=== PATIENT | female | born 1995 | race Caucasian/White ===

== ENCOUNTER 2018-03-07 01:28 | Emergency (ER) | payer OTHER, SELFPAY ==
[2018-03-07 01:29] VITALS: BP 176/100; PULSE 78; RESP 16; TEMP 36.6; O2SAT 100; BMI 47.3
--- NOTE | 2018-03-07 01:41 | RAD_ITS ---
STUDY: X-RAY - RIGHT HUMERUS REASON FOR EXAM: Female, 22 years old. Pain in mid humerus for 2 days. No known injury. TECHNIQUE: 2 view(s) of the humerus. COMPARISON: None. FINDINGS: Normal visualized humerus. There is no demonstrated fracture or osseous destructive process. There is no demonstrated soft tissue abnormality. RAD/Humerus min 2 Views IMPRESSION: Normal x-ray examination of the humerus. Electronically Signed: Krzysztof Suarez MD at 2:21 EDT , Service support ,
--- NOTE | 2018-03-07 01:41 | EKG12_ITS ---
Test Reason : UPPER EXT Blood Pressure : / mmHG Vent. Rate : 064 BPM Atrial Rate : 064 BPM P-R Int : 158 ms QRS Dur : 084 ms QT Int : 406 ms P-R-T Axes : 031 044 034 degrees QTc Int : 418 ms Normal sinus rhythm with sinus arrhythmia Normal ECG Confirmed by DARIA SULLIVAN, FIDEL ([id number]), assistant editor GABBY BIRCH ([id number] on 03/12/2018 3:38:39 PM Referred By: BB Confirmed By:FIDEL HUFF MD
--- NOTE | 2018-03-07 01:51 | ED.VIS.GEN ---
History of Present Illness Chief Complaint: Upper Extremity Injury Detail of Chief Complaint: R arm pain w/o injury Informant: Patient Onset: Days - 2 Context: - - awoke w/ the pain Timing: Continuous Quality: ache Location: right arm volar, toward AC fossa Current Severity: tolerable Maximum Severity: Severe Worsened by: resting/lying down at night Relieved by: staying active during the day Associated Symptoms: none. Narrative: Right-hand dominant female presenting with her right arm bothering her. She woke up with the discomfort 2 days ago, states that the day before she did not injure it or overuse it to her knowledge. Tonight the pain got severe, causing her to vomit. She states that she is fairly certain that she vomited because the pain was severe which is happened before, in general. She denies any tingling in her fingertips. No edema in the affected area or downstream in the right upper extremity. No chest discomfort, shortness of breath, orthopnea, palpitations, lightheadedness/dizziness/presyncope, back pain, discomfort in the other 3 extremities. No recent IVs in her right arm or other healthcare manipulation or injury. There is no radiation of the pain distally or proximally into the shoulder. She has a remote history of a PE that she was diagnosed with in [place], she states it was suspected to be due to travel, which she has not done lately. She is no longer on anticoagulants. She does not think she was tested for a hypercoagulable state, but she does not know. She has never knowingly had a DVT in an extremity. Prior similar symptoms: No Recent Illness/Hospitalization: No - Past Medical History (1) Pulmonary embolus Status: Resolved Past Medical History - Allergies and Home Meds Allergies/Adverse Reactions: Allergies No Known Allergies Allergy (Verified 03/07/18 01:32) Primary Care Physician: Doctor,Your [STAFF PHYSICIAN] - 3-5 Days if not improving Smoking Status: Never smoker Drugs: None Review of Systems General: Denies: Chills, Fever, Sweats Cardiovascular: Denies: Chest pain, Palpitations, Heart racing Respiratory: Denies: Dyspnea, Cough, Orthopnea, Paroxysmal nocturnal dyspnea Gastrointestinal: Reports: Vomiting. Denies: Abdominal pain Musculoskeletal: Reports: Extremity Pain. Denies: Neck pain, Back pain, Swelling Skin: Denies: Rash, Abscess, Abrasions, Wounds, - - FB Neurological: Denies: Headache, Weakness, Parasthesia, Numbness Physical Exam Vital Signs/Narrative: Vital Signs Temp Pulse Resp BP Pulse Ox 03/07/18 01:29 97.8 F 78 16 176/100 H 100 Inital Vital Signs reviewed: Yes General: Well nourished, Well developed, Obese Head: Normocephalic, Atraumatic Eyes: Perrl, EOMI ENT: Moist mucous membranes, No rhinorrhea Neck: Supple, Nontender Cardiovascular: Regular rate, Regular rhythm, No murmurs. Negative for: Tachycardia Respiratory: No distress, CTA bilaterally, Chest nontender Extremities: Nontender, No edema, - - No subcutaneous lesions or cords palpable in the affected area which is the distal half of the upper arm, volar aspect. The pain is worsened when she holds her arm palm up out in front of her, flexing up at the shoulder against resistance, with elbow extended. When her elbow is down at her side abducted, and she flexes her bicep against resistance, the pain is not worsened. All compartments are soft and nondistended. No discomfort with passive stretch of the Hysept compartment. Normal distal pulse radial. No pain with abducting shoulder against resistance. Negative Yergason and proximal biceps tendons nontender. No asymmetry when viewing both arms at rest at her side. Skin: Normal color, No rash. Negative for: Trauma Neurological: Alert, Oriented x3, Cranial nerves II-XII grossly intact, Normal Strength, Normal Sensation, Normal Gait Psychological: Normal affect Diagnostic/Tx/Re-eval - Rhythm Strip Rhythm Strip: Sinus Rhythm Rate: 70 Ectopy: None - EKG Initial EKG Interpretation: Sinus Rhythm, No Acute Injury Pattern, - - Normal intervals and axis, normal EKG - Medical Decision Making She was offered analgesics but declined, saying that pain is tolerable at this time. The most likely etiology would be something musculoskeletal, with her age and health and lack of other symptoms to suggest a source for referred pain. I am able to make the pain worse when she flexes up against resistance, which does pull on the long head of the biceps, however it is not severe, so after discussing with the patient, she was amenable to obtaining other test to rule out possible referred sources of the pain. Her EKG is normal, and x-ray shows no signs of any bone cysts, masses, or any other radiopaque abnormality. I do not think there is a DVT of her right arm, nor is a duplex ultrasound available at this time. She has no risk factors for developing that. Her blood pressure significantly elevated, I cannot say it is impossible that it could be linked, however with a normal EKG the physiologic mechanism for her blood pressure causing discomfort in her right arm is unknown at this time. She has no neurologic symptoms and I do not think a CT of the head or other imaging is indicated at this time. I had nursing recheck her blood pressure. With the same cuff, her blood pressure is reading 168 over 90s, but when we change the cuff to a larger probably more appropriate size for her body habitus, her blood pressure is 148/71. At this level, I am reassured that elevated pressure is probably not causing referred discomfort, her pressure could be elevated simply due to being in pain. Given the very specific part of her upper arm that is bothering her, and the fact that it stops at the elbow, my suspicion for referred pain is lower than musculoskeletal etiology. I recommend continuing ibuprofen, using Ultram as needed for breakthrough pain, and following up with her doctor for reevaluation if continuing. She is comfortable with that plan, and is agreeable to an Ultram here. She has a doctor in [place], she will continue seeing them which I think is fine. ED Disposition - Plan for ED Patient: Disposition: Home or Assisted Living Chief Complaint: Upper Extremity Injury Diagnosis: Strain of right biceps Instructions: Treating?Strains and Sprains Prescriptions: traMADol [Ultram] 50 mg PO Q4H PRN PRN 2 Days #12 tab PRN Reason: Pain Referrals: Doctor,Your [STAFF PHYSICIAN] - 3-5 Days if not improving
[2018-03-07 02:18] VITALS: BP 148/71; PULSE 86; RESP 16; O2SAT 96
[2018-03-07 02:27] VITALS: BP 148/71; PULSE 87; RESP 16; O2SAT 98
[2018-03-07] MEDS: traMADol 50 MG Tablet PO (02:27)
== END 2018-03-07 02:28 | disposition home or self-care (01) ==
PROVIDERS: Emergency Provider Emergency Medicine
DX: S46.211A Strain of muscle, fascia and tendon of other parts of biceps, right arm, initial encounter (principal); X58.XXXA Exposure to other specified factors, initial encounter; Y93.9 Activity, unspecified; Y92.89 Other specified places as the place of occurrence of the external cause; Y99.9 Unspecified external cause status; Z86.711 Personal history of pulmonary embolism; E66.9 Obesity, unspecified
CPT/HCPCS: 73060; 93005; 99283

== ENCOUNTER 2022-07-04 16:38 | Emergency (ER) | payer OTHER, SELFPAY ==
[2022-07-04 16:39] VITALS: BP 151/107; PULSE 82; RESP 18; TEMP 36.6; O2SAT 93; BMI 43.2
[2022-07-04 17:03] VITALS: TEMP 37.2
--- NOTE | 2022-07-04 17:12 | EDS_ITS ---
HPI <JOSE Em - Last Filed: 07/04/22 19:49> HPI - URI History of Present Illness Chief Complaint: Sore Throat Narrative Narrative: Patient presenting with sore throat that she has had for the past 4 days. She states she noticed she has white marinelli on her tonsils. Patient has had nausea, a few episodes of vomiting, nasal congestion, fever, and body aches as well. She denies abdominal pain, diarrhea, cough, chest pain, and shortness of breath. ROS <JOSE Em - Last Filed: 07/04/22 19:49> ROS ED Constitutional Constitutional ED: Reports chills, fatigue and fever(s) Eyes Eyes: Reports none ENT ENT ED: Reports rhinorrhea and sore throat Cardiovascular Cardiovascular: Denies abdominal pain, chest pain or dyspnea on exertion Respiratory/Chest Respiratory/Chest: Denies chest congestion, cough or dyspnea Gastrointestinal Gastrointestinal: Reports nausea and vomiting; Denies abdominal pain, diarrhea or hematemesis Genitourinary Genitourinary ED: Denies dysuria, hematuria or urinary frequency Musculoskeletal Musculoskeletal: Reports myalgias Integumentary Denies abscess, Abrasions or rash Psychiatric Psychiatric: Denies anxiety or depression Endocrine Endocrinology: Reports fatigue PFSH <JOSE Em - Last Filed: 07/04/22 19:49> PFSH Home Medications NK 07/04/22 [History Last Taken Unknown] Allergy/AdvReac Type Severity Reaction Status Date / Time No Known Allergies Allergy Verified 07/04/22 16:40 Social History Smoking Status: Never smoker EXAM <JOSE Em - Last Filed: 07/04/22 19:49> Physical Exam Const Vital Signs: 07/04/22 16:39 07/04/22 17:03 Temperature 97.8 F 99 F Temperature Source Temporal Oral Pulse Rate 82 Respiratory Rate 18 Blood Pressure 151/107 H Blood Pressure Mean 121 Pulse Ox 93 Oxygen Delivery Method Room Air Positive well nourished and well developed General Appearance ED: well developed and NAD HEENT Reports moist mucous membranes HEENT Narrative: Posterior pharynx erythemic, tonsils erythemic with exudates. Uvula midline. Trachea midline. normocephalic Eyes PERRL and EOMs intact bilaterally Neck supple and no meningeal signs General: Negative for anterior neck swelling Resp normal respiratory effort and clear to auscultation bilaterally Cardio no murmurs Rate: regular rate Rhythm: regular rhythm GI non-tender, non-distended and no masses Palpation: soft Back/Spine normal ROM Neuro oriented x3, CN's II-XII intact bilaterally and no sensory deficits noted <Dr. Oswaldo Du, - Last Filed: 07/04/22 17:24> Physical Exam Const Vital Signs: 07/04/22 16:39 07/04/22 17:03 Temperature 97.8 F 99 F Temperature Source Temporal Oral Pulse Rate 82 Respiratory Rate 18 Blood Pressure 151/107 H Blood Pressure Mean 121 Pulse Ox 93 Oxygen Delivery Method Room Air [facility] <JOSE Em - Last Filed: 07/04/22 19:49> [facility] Narrative Medical decision making narrative: Patient presenting with cold-like symptoms that she has had for the past 4 days. She is afebrile here in the ED. Posterior pharynx is erythemic with exudates on the tonsils bilaterally, worse on the right side. I am not concerned for a peritonsillar abscess as there is no swelling in the posterior pharynx and uvula is midline. Trachea is also midline. I have considered strep pharyngitis, viral pharyngitis, COVID, and influenza. Rapid strep came back negative, however, it will be cultured. Rapid flu and COVID are both negative. Patient likely has a viral URI. I have educated her on supportive care measures. Patient will be discharged home in stable condition and is comfortable with plan. She has been given return instructions. <Dr. Oswaldo Du, DO - Last Filed: 07/04/22 17:24> [facility] Treatment and Re-Evaluation Narrative: I have personally performed a face to face assessment of the patient and have reviewed the CONNOR Note. I performed a substantive portion of the visit including all aspects of the following. My hirsch findings include: History: Patient presents with a sore throat that has been getting worse over the past couple days. Patient states it is worse with swallowing. Patient admits to low-grade fevers at home. Patient did not take her temperature at home however. Patient states her pain is sharp. Patient denies any cough. Patient denies any nausea or vomiting. Patient denies any chest pain or shortness of breath. Exam: Vital signs are stable. Patient is afebrile here. Patient is in no acute distress. Oral mucosa is pink and moist. Oropharynx is erythematous. There is exudates on the tonsils, worse on the right. Airway is patent. Neck is supple. Trachea is midline. There is no JVD. There is tender anterior cervical lymphadenopathy noted. Heart was regular rate and rhythm. Lungs are clear and equal bilaterally. Abdomen is soft and nontender. Cranial nerves II through XII are intact. There are no focal motor or sensory deficits. Medical Decision Making: Differential diagnosis includes strep pharyngitis, viral pharyngitis, COVID, and influenza. COVID-19 rapid antigen will be obtained to assess for COVID-19. Influenza A and influenza B rapid antigens will be obtained to assess for influenza. Rapid strep will be obtained to assess for streptococcal pharyngitis. Discharge Plan Triage Chief Complaint: Sore Throat ED Midlevel Provider: Adelaide Goodwin ED Provider: Oswaldo Du Dx/Rx/DC Orders Instructions: ED Pharyngitis, Viral Prescriptions: No Action NK Primary Care Provider: Care Physician,No Primary Referrals: Care Physician,No Primary [Primary Care Provider] - Activity Restrictions/Additional Instructions: Please follow-up with PCP in 3 to 5 days. Be sure to stay well-hydrated and return if symptoms worsen. You can gargle salt water for your throat and take [id number] cold medications. Disposition Disposition: Home, Self Care Discharge Date/Time: 07/04/22 19:05
== END 2022-07-04 19:05 | disposition home or self-care (01) ==
PROVIDERS: Emergency Provider Emergency Medicine; Visit Provider Emergency Medicine
DX: J02.9 Acute pharyngitis, unspecified (principal); R11.2 Nausea with vomiting, unspecified
CPT/HCPCS: 87428; 87880; 99282